=== PATIENT | male | born 1955 | race Caucasian/White ===

== ENCOUNTER 2020-10-27 05:01 | Observation (INO) ==
--- NOTE | 2020-10-20 09:30 | PAT Medication Instructions ---
Medication Instructions Date of Service October 20, 2020 Home Medications cholecalciferol (vitamin D3) 50 mcg (2,000 unit) capsule (Vitamin D3) 50 mcg PO QAM hydrochlorothiazide 25 mg tablet 50 mg PO QAM lisinopril 40 mg tablet 40 mg PO QAM mecobalamin (vitamin B12) 1,000 mcg chewable tablet 1,000 mcg PO QAM amlodipine 10 mg tablet 10 mg PO QAM indomethacin 75 mg capsule,extended release 75 mg PO QAM metoprolol succinate 100 mg capsule sprinkle, ext. release 24 hr 100 mg PO QAM ASK your surgeon for instructions indomethacin 75 mg capsule,extended release 75 mg PO QAM DO NOT take the morning of surgery cholecalciferol (vitamin D3) 50 mcg (2,000 unit) capsule (Vitamin D3) 50 mcg PO QAM hydrochlorothiazide 25 mg tablet 50 mg PO QAM lisinopril 40 mg tablet 40 mg PO QAM mecobalamin (vitamin B12) 1,000 mcg chewable tablet 1,000 mcg PO QAM Take morning of surgery With a small sip of water, OTHERWISE NOTHING TO EAT OR DRINK AFTER MIDNIGHT: amlodipine 10 mg tablet 10 mg PO QAM metoprolol succinate 100 mg capsule sprinkle, ext. release 24 hr 100 mg PO QAM Other Notes If you have any questions please call us at [phone] or [phone] or [phone] or [phone]
--- NOTE | 2020-10-20 13:37 | Anesthesiology Consultation ---
Date of Service October 20, 2020 Assessment & Plan (1) Encounter for pre-operative examination: COVID screening: Per assessment on 10/20: Travel screen negative, no known COVID- 19 positive contacts or current COVID-19 related symptoms. Patient vaccinated. Surgeon arranging preop COVID testing. Awaiting results. Chart Review Chart Review: Acceptable Risk for Surgery (pending surgeon-ordered PCP clearance) and Patient seen in Pre Admission Testing Teaching & Discussion Pre-Anesthesia Teaching/Discussion Notes: Instructed NPO after midnight before surgery,except medications with 15 cc of water. Medication instructions provided according to the PAT guidelines. History Surgery Operation Date: 10/27/20 07:00 Proposed Procedures p Left Total Knee Arthroplasty - Ajit Woodard MD Height/Weight Height: 6 ft 4 in Weight: 129.9 kg Allergies Allergy/AdvReac Type Severity Reaction Status Date / Time No Known Allergies Allergy Verified 10/20/20 07:23 Medications Home Medications Medication Instructions Recorded Confirmed Last Taken cholecalciferol (vitamin D3) 50 50 mcg PO QAM 04/01/20 10/20/20 Unknown mcg (2,000 unit) capsule (Vitamin D3) hydrochlorothiazide 25 mg tablet 50 mg PO QAM 04/01/20 10/20/20 Unknown lisinopril 40 mg tablet 40 mg PO QAM 04/01/20 10/20/20 Unknown mecobalamin (vitamin B12) 1,000 1,000 mcg PO QAM 05/07/20 10/20/20 Unknown mcg chewable tablet amlodipine 10 mg tablet 10 mg PO QAM 10/20/20 10/20/20 Unknown indomethacin 75 mg 75 mg PO QAM 10/20/20 10/20/20 Unknown capsule,extended release metoprolol succinate 100 mg 100 mg PO QAM 10/20/20 10/20/20 Unknown capsule sprinkle, ext. release 24 hr Past Medical History Medical History Chronic venous insufficiency S/P RFA of the GSV and SSV HTN (hypertension) Obesity Osteoarthritis Venous stasis ulcer Hx 04/2020 (RLL), "healed" per 09/25/20 [facility] [place] wound visit Exercise / Class Metabolic Activity II 4-5 Yardwork/Stairs/Walk up hill Past Family History Family History Other No family history of adverse response to anesthesia Past Surgical History Surgical History H/O elbow surgery Right Elbow H/O shoulder surgery (~1971) Left Shoulder History of colonoscopy Past Anesthesia History No Hx of Anesthesia Complications and No Family Hx of Anesthesia Complications History of PONV No Hx of PONV and Hx of Motion Sickness (Rare) Social History Smoking Status: Current every day smoker tobacco type: cigarettes Smoking cigarettes per day: 1/2 PPD Do You Dip or Chew Tobacco: No Hx Alcohol Use: Yes Alcohol type: beer alcohol intake frequency: a few times a week (3-4 beers/week) Hx Substance Use: No substance use type: does not use Review of Systems Patient denies chest pain, shortness of breath, dyspnea on exertion, fever, chills, cough, wheezing, palpitations. Physical Exam Vital Signs VITALS BP 142/78 P 59 TEMP 98.8 SP02 96%RA RESP 18 PHYSICAL Mildly decreased cervical extension range of motion. Full TMJ range of motion. TMD 4 finger breaths Mallampati Score 3 Dentition: full dentures upper/lower Lungs: clear throughout to auscultation Cardiac: regular rate and rhythm, no murmurs noted Spine: normal Carotid arteries: negative bruit Extremities: no edema, + compression stockings Lab Results Anesthesia Preop Results Results Anesthesia Widget: WBC 7.64 K/uL (4.8-10.8) 10/20/20 Hgb 16.4 g/dL (14.0-18.0) 10/20/20 Hct 49.6 % (42-52) 10/20/20 Plt 185 K/uL (130-400) 10/20/20 Na 138 mmol/L (136-145) 10/20/20 K 3.2 mmol/L (3.5-5.1) L 10/20/20 Cl 104 mmol/L (98-107) 10/20/20 CO2 26 mmol/L (21-32) 10/20/20 BUN 9 mg/dl (7-18) 10/20/20 Creat 1.09 mg/dl (0.6-1.4) 10/20/20 Glucose Level 97 mg/dl (70-99) 10/20/20 PT 10.3 Seconds (9.0-12.0) 10/20/20 PTT 27.0 Seconds (21.0-31.0) 10/20/20 INR 1.0 (0.9-1.1) 10/20/20 Urine Color Yellow 10/20/20 Urine Appearance Clear (Clear) 10/20/20 Urine pH 5.5 (4.5-7.5) 10/20/20 Urine Specific [place] 1.012 (1.000-1.030) 10/20/20 Urine Protein Negative (Negative) 10/20/20 Urine Glucose (UA) Negative (Negative) 10/20/20 Urine Ketones Negative (Negative) 10/20/20 Urine Blood Trace (Negative) H 10/20/20 Urine Nitrite Negative (Negative) 10/20/20 Urine Bilirubin Negative (Negative) 10/20/20 Urine Urobilinogen Negative (Negative) 10/20/20 Urine Leukocyte Esterase Negative (Negative) 10/20/20 Urine WBC (Auto) 1-5 /hpf (0-5) 10/20/20 Urine RBC (Auto) 0-4 /hpf (0-4) 10/20/20 Urine Hyaline Casts (Auto) 1-5 /lpf (0-5) 10/20/20 Urine Epithelial Cells (Auto) 0-5 /lpf (0-5) 10/20/20 Urine Bacteria (Auto) Negative (Negative) 10/20/20 Blood Type O Positive 10/20/20 Antibody Screen NEGATIVE 10/20/20 Testing Electrocardiogram Date: 04/13/20 SB at 52bpm. NS STA. Chest X-Ray Date: 04/13/20 Findings: + NAD Echocardiogram Date: 05/01/20 LVEF 55-59%. No RWMA. Mildly increased cLV wall thickness. Mild MR.
--- NOTE | 2020-10-21 17:06 | History & Physical Report ---
Date of Service October 21, 2020 Assessment & Plan (1) Left knee DJD: Plan: Postoperative prescription for Percocet will be provided at discharge from the hospital. Anticipate discharge to home with home health services. Preoperative lab work, EKG, and chest x-ray have been ordered today. He is seeing PT today. He has an appointment later this week to see his PCP for medical clearance. He is aware of the COVID-19 risks associated with surgery. He is currently asymptomatic of any COVID-19 symptoms. He will obtain nasal swab testing this Monday prior to surgery. He has a walker and cane. PDMP was checked and there are no concerning findings. Followup appointment has been made with Dr. Woodard for 11/09/20 at 3:00 p.m. History of Present Illness Chief Complaint: Left knee pain Primary Care Provider: Rosa Rice This 65-year-old male presents for his preoperative history and physical. He is scheduled to undergo a left knee total knee arthroplasty on 10/27/20. The patient was previously scheduled for this same procedure on 05/05/20. He was postponed at that time secondary to a right leg infection and open wound. He is now ready to proceed. No new injury. He continues to have left knee pain. It has been present for over 2-1/2 years. Pain is currently restricting his activities of daily living. Pain is worse with weightbearing. He has difficulty with walking any significant distance. He has tried viscosupplementation injections as well as activity modification without lasting improvement. No numbness or tingling. Preoperative imaging has been obtained. He does get occasional night pain. Allergies Allergy/AdvReac Type Severity Reaction Status Date / Time No Known Allergies Allergy Verified 10/20/20 07:23 Home Medications Medication Instructions Recorded Confirmed Type cholecalciferol (vitamin D3) 50 50 mcg PO QAM 04/01/20 10/20/20 History mcg (2,000 unit) capsule (Vitamin D3) hydrochlorothiazide 25 mg tablet 50 mg PO QAM 04/01/20 10/20/20 History lisinopril 40 mg tablet 40 mg PO QAM 04/01/20 10/20/20 History mecobalamin (vitamin B12) 1,000 1,000 mcg PO QAM 05/07/20 10/20/20 History mcg chewable tablet amlodipine 10 mg tablet 10 mg PO QAM 10/20/20 10/20/20 History indomethacin 75 mg 75 mg PO QAM 10/20/20 10/20/20 History capsule,extended release metoprolol succinate 100 mg 100 mg PO QAM 10/20/20 10/20/20 History capsule sprinkle, ext. release 24 hr Past Med/Surg History Medical History Chronic venous insufficiency S/P RFA of the GSV and SSV HTN (hypertension) Obesity Osteoarthritis Venous stasis ulcer Hx 04/2020 (RLL), "healed" per 09/25/20 [facility] [place] wound visit Surgical History H/O elbow surgery Right Elbow H/O shoulder surgery (~1970) Left Shoulder History of colonoscopy Family History Other No family history of adverse response to anesthesia Social History Smoking Status: Current every day smoker Cigarettes Per Day: 1/2 PPD; Second Hand Exposure: No; Hx Alcohol Use: Yes Alcohol type: beer Alcohol type Comment: 1-2x weekly Hx Substance Use: No Preferred Language: Gibralt[place] Communication Ability: Effective Blood Bank Calendar Control Clerk Required: No Beliefs That Will Affect Care: None Current Living Situation: Spouse current occupational status: employed 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 Physical Exam Physical Exam: Vitals: Height 191 cm, weight 130 kilograms, BMI 35.6, temperature 36.6, BP 146/86, pulse 65, O2 sat 97% on room air. General: Well-developed, well-nourished, elderly white male in no acute distress. Sitting in a chair. Alert and oriented. Skin: Warm and dry with good turgor. No rashes or lesions. No ecchymosis or erythema. He does have peripheral edema in both lower extremities. Right is slightly worse than left. Compression stockings are in place. HEENT: Normocephalic, atraumatic. Eyes: PERRLA, EOMI. Nares and oropharynx exams deferred due to COVID precautions. Heart: RRR, 2/6 systolic ejection murmur noted at the left sternal border. No gallops or rubs. Lungs: Clear to auscultation bilaterally. No crackles, rhonchi, or wheezing. Good air movement. Abdomen: Obese. Bowel sounds present x4, soft, nontender. No organomegaly. No masses. Musculoskeletal: Left knee evaluation reveals no intraarticular effusion. There is some thickening about the knee. There is limited range of motion. He lacks about 15 degrees of terminal extension. Flexion to only around 80 degrees today. This is significantly worse than when I last saw him in April. Strength is 5/5 with fair quad tone. Valgus alignment to the left knee. Stable collateral ligaments. No defect in the patellar tendon or quadriceps tendon. Ambulating today with an antalgic gait. Neurologic: Gross sensation is intact across left leg by soft touch. Peripheral pulses are 2+. Results & Data Results & Data ([facility]) Diagnostic Findings Radiographic imaging previously obtained shows end-stage DJD of the left knee. Periarticular osteophytes, subchondral sclerosis, and joint space narrowing are all present. Code Status & VTE Plan VTE Prophylaxis Plan VTE Prophylaxis will be ordered: Yes
[2020-10-27] MEDS ORDERED: ROPIVACAINE 0.5% HCL/PF 150 MG, BUPIVACAINE 0.75% MPF 20 ML, EPINEPHrine 0.15 MG, Ketor... INFIL SCH (06:00)
[2020-10-27] MEDS ORDERED: METOCLOPRAMIDE HCL 10 MG TABLET PO SCH (06:00)
[2020-10-27] MEDS ORDERED: CeleBREX 200 MG CAP PO SCH (06:00)
[2020-10-27] MEDS ORDERED: LR 60ML/HR IV SCH (06:00)
[2020-10-27] MEDS ORDERED: dexAMETHasone 4 MG TAB PO SCH (06:00)
[2020-10-27] MEDS ORDERED: oxyCODONE HCL 10 MG TABCR (OxyCONTIN) PO SCH (06:00)
[2020-10-27] MEDS ORDERED: cloNIDine HCL 0.1 MG/24 HR TRANSDERM SYS TD SCH (06:00)
[2020-10-27] MEDS ORDERED: TRANEXAMIC ACID 1,000 MG **IV Intra-op IV SCH (06:00)
[2020-10-27] MEDS ORDERED: TRANEXAMIC ACID 1,000 MG **IV Pre-op IV SCH (06:00)
[2020-10-27] MEDS ORDERED: GABAPENTIN 300 MG CAP PO SCH (06:00)
[2020-10-27] MEDS ORDERED: LR 500ML BOLUS, THEN 15ML/HR IV SCH (06:00)
[2020-10-27] MEDS ORDERED: traMADol HCL 50 MG TABLET PO SCH (06:00)
[2020-10-27] MEDS ORDERED: ACETAMINOPHEN 500 MG TAB PO SCH (06:00)
[2020-10-27] MEDS ORDERED: FAMOTIDINE 20 MG TAB PO SCH (06:00)
[2020-10-27] MEDS ORDERED: BUPIVACAINE 0.25% 30 ML VIAL ONE (06:28)
[2020-10-27] MEDS ORDERED: BUPIVACAINE 0.5 % 5 MG/1 ML PF 10ML VIAL ONE (06:28)
[2020-10-27] MEDS ORDERED: MIDAZOLAM HCL 1 MG/ML 2ML VIAL ONE ×2 (06:35→08:16)
[2020-10-27] MEDS ORDERED: LIDOCAINE 2% 2 ML VIAL/AMP(20MG/ML) INFIL ONE (06:35)
[2020-10-27] MEDS ORDERED: PROPOFOL IV EMULSION 10 MG/ML 20 ML VIAL IV ONE (06:35)
[2020-10-27] MEDS ORDERED: ePHEDrine sulfate 50 MG/ML AMP IV PRN (06:38)
[2020-10-27] MEDS ORDERED: ONDANSETRON INJ 2 MG/ML 2 ML VIAL IV PRN ×2 (06:38→14:56)
[2020-10-27] MEDS ORDERED: fentaNYL citrate 100 MCG/2 ML VIAL IV PRN (06:38)
[2020-10-27] MEDS ORDERED: ATROPINE SULFATE 0.1 MG/ML 10ML SYR IV PRN (06:38)
--- NOTE | 2020-10-27 06:44 | History & Physical Bridge Note ---
Date of Service October 27, 2020 History & Physical Bridge Note I have examined the patient, reviewed the History & Physical and in the interval since the performance of the History & Physical I have noted the following changes of clinical significance: no changes noted
[2020-10-27] MEDS ORDERED: KETAMINE 50 MG/5 ML SYRINGE ONE (07:29)
[2020-10-27] MEDS ORDERED: GLYCOPYRROLATE 0.2 MG/ML VIAL ONE (07:40)
[2020-10-27] MEDS ORDERED: SUCCINYLCHOLINE 100MG/5ML SYR IV ONE (09:25)
[2020-10-27] MEDS ORDERED: FUROSEMIDE 10 MG/ML 10 ML VIAL IV ONE (09:25)
--- NOTE | 2020-10-27 10:57 | Post Operative Brief Note ---
Immediate Post Op Note v1 Date of Surgery October 27, 2020 Pre & Post Diagnosis Operation Date: 10/27/20 07:00 Pre-Op Diagnosis: Left Knee Degenerative Joint Disease Post-Op Diagnosis: Left Knee Degenerative Joint Disease I identified the patient and participated in the time-out.: Yes Procedure Operation Date: 10/27/20 07:00 Actual Procedures p Left Total Knee Arthroplasty(Left) - Ajit Woodard MD Surgeon Ajit Woodard MD Sand Temperer gerhard hannon, no resident available Estimated Blood Loss 20 Findings See Below sever OA Drains Ann Catheter (16 macedonian 10ml balloon inserted by Maya Ross RN, without difficulty.) Anesthesia Type General Regional Complications possible pulmonary edema Disposition Accompanied Patient To Recovery: No Disposition: Recovery Room
--- NOTE | 2020-10-27 11:12 | Operative Report ---
Post Operative Report Pre & Post Diagnosis Operation Date: 10/27/20 07:00 Pre-Op Diagnosis: Left Knee Degenerative Joint Disease Post-Op Diagnosis: Left Knee Degenerative Joint Disease I identified the patient and participated in the time-out.: Yes Procedure Operation Date: 10/27/20 07:00 Actual Procedures p Left Total Knee Arthroplasty(Left) - Ajit Woodard MD Surgeon TEJINDER May MD Grants Specialist gerhard hannon, no resident available Estimated Blood Loss 20 Findings Consistent with Post-Op Diagnosis see operative report Specimens see operative report Drains none Complications Flash pulmonary edema Disposition Accompanied Patient To Recovery: Yes Indications This 65-year-old male presented to the office with complaints of persisting left knee pain. He had tried conservative care measures without improvement. He elected to proceed with surgical intervention after being educated about potential risks and outcomes. Preoperative imaging was obtained. Description of Procedure Patient was administered a spinal anesthetic and then taken to the operating room where he was given sedation. He was prepped and draped in the usual sterile fashion. Please see Dr. Woodard's operative report for specifics of the procedure. I was present for the entire case from initial patient positioning through final wound closure. During the duration of the case, patient did require intubation due to flash pulmonary edema. Assistance was provided in tissue retraction, hemostasis, trial implant placement, final implant placement, and final wound closure. Patient was taken to the recovery room intubated with eventual transfer to ICU. I attest to the content of the Intraoperative Record and any orders documented therein. Any exceptions are noted below.
[2020-10-27] MEDS ORDERED: propofoL 1,000 MG/100 ML VIAL IV SCH (11:15)
[2020-10-27] MEDS ORDERED: STAT IV Infusion **Titration per Protocol STA ×2 (11:15→12:12)
[2020-10-27] MEDS: PROPOFOL BOLUS FROM BAG IV PRN ×5 (11:44→12:23)
--- NOTE | 2020-10-27 12:09 | XRay Report ---
XR chest 1V portable HISTORY: Shortness of breath. r/o pulmonary edema COMPARISON: Chest 04/13/2020. FINDINGS: The endotracheal tube terminates 5.2 cm from the rod. The cardiac silhouette is mildly e nlarged. There is mild perihilar interstitial/vascular thickening suggestive of mild congestive hoffman e. No pleural effusions. No pneumothorax. Left basilar linear densities favor subsegmental atelectasi s. IMPRESSION: 1. Cardiomegaly with mild central pulmonary vascular congestion without overt edema. 2. Endotracheal tube terminates 5.2 cm from the rod. ACT 112: Negative or not required by law. Electronically signed by: Jimmy Chacon M.D. 10/27/2020 12:08 PM
[2020-10-27] MEDS ORDERED: MIDAZOLAM BOLUS FROM BAG IV PRN (12:12)
[2020-10-27] MEDS ORDERED: fentaNYL DRIP 1,250 MCG/250 ML BAG IV SCH (12:15)
[2020-10-27] MEDS ORDERED: MIDAZOLAM HCL 125 MG/250 ML BAG IV SCH (12:15)
--- NOTE | 2020-10-27 12:20 | XRay Report ---
LEFT KNEE 2 VIEWS History: Left total knee arthroplasty. Degenerative arthritis. Postop. FINDINGS: The patient is status post a left total knee arthroplasty. The hardware is intact. No fract ure or dislocation. Skin oniel are in place. IMPRESSION: Left total knee arthroplasty. No evidence for hardware complication. ACT 112: Negative or not required by law. Electronically signed by: Jimmy Chacon M.D. 10/27/2020 12:18 PM
--- NOTE | 2020-10-27 12:25 | Operative Report (OR) ---
DATE OF PROCEDURE: 10/27/2020 PREOPERATIVE DIAGNOSES: Left knee osteoarthritis, lateral compartment with valgus deformity and flex ion contracture. POSTOPERATIVE DIAGNOSES: Left knee osteoarthritis, lateral compartment with valgus deformity and fle xion contracture. PROCEDURE: Cemented left total knee arthroplasty. SURGEON: Ajit Woodard MD. HIM SPECIALIST: Raad Verma PA-C. No resident or fellow available. ANESTHESIA: Spinal regional with sedation converted to general. BRIEF HISTORY: Jeison is 65 years old and has severe left knee pain secondary to significant later al compartment arthritis with flexion contracture and valgus deformity. His symptoms are refractory to nonsurgical methods of management and affects his activities of daily living. PROCEDURE IN DETAIL: Informed consent was obtained. The patient was identified as Jeison Husain. He identified the operative site as the left knee. I marked with my initials. A preoperative surg ical timeout was performed and a preoperative dose of IV antibiotics was given. TXA was given preope ratively. He was taken to the operating room and positioned supine on the operating room table and a spinal anesthetic regional nerve block and sedation were administered. A bump was placed under the left hip and a tourniquet on the left thigh. A padded post was placed under the calf. The leg was p repped and draped in the usual sterile fashion from the tourniquet to the toes. The examination under anesthesia revealed a fixed valgus deformity of about 10-12 degrees. He additi onally had approximately a 15-degree flexion contracture, perhaps slightly more. His knee flexed wit h gravity to about 110 degrees. He had a large effusion. There was trace pretibial edema and what l ooked like an old resolving mosquito bite on the distal medial tibia, noninflamed and noninfected, ju st a small eschar. He previously had his surgery canceled because of a right leg venous stasis ulcer. He has undergone treatment for that and it is completely healed and stable at this time. The left leg was exsanguinated with the Esmarch and the tourniquet inflated to 250 mmHg after routine prep and drape. A midline incision was made followed by a medial parapatellar arthrotomy. There was abundant synovitis throughout the knee, which was excised using sharp excision and rongeur throughou t the entire knee as encountered. A large amount of fluid was present in the knee. There were large osteophytes on the patella, which were debrided. A minimal medial release was performed enough to s ubluxate the knee. The retropatellar fat pad was resected and soft tissue on the anterior aspect of the distal femur was removed as well. Large marginal osteophytes mainly on the femur, but also on the distal lateral tibia were removed, es pecially osteophytes on the proximal lateral tibia. There was some central wear present with grade I V changes in the lateral compartment. The lateral meniscus was largely absent. The medial meniscus was attenuated. There was an abnormal-appearing ACL. Not as big as I would have anticipated, so per haps partially or chronically torn with large lateral notch osteophytes, which were debrided. The me dial meniscus and lateral meniscus were excised. The medial meniscus was deficient as well and there were osteophytes posteromedial and posterolateral in the tibia, which were debrided as encountered. After resecting the cruciate ligaments, the tibia was easily subluxated. A chocolate coater hole was drilled in to the proximal tibia just in front of and between the tibial spines. An intramedullary alignment ro d was introduced and the 0-degree cutting block was applied. This was aligned to the tibial tubercle and set to take 6 mm off of the medial high side, which would correspond to a 2 mm or skin cut later ally. I initially made a conservative cut so as to not overdo the extension gap as it can sometimes happen in a valgus knee. This cut was made and checked for level, and remaining osteophytes posterol aterally on the tibia were removed. I then drilled a chocolate coater hole into the distal femur just above and slightly medial to the PCL attachmen t on the femur. An intramedullary alignment raghu was introduced and the distal femoral cutting guide was affixed to the femur. Because of his flexion contracture, a 14 mm thick cut was made. The colla teral ligaments were well proximal to the level of the incision. The cut was flat and level. At thi s time, the block was removed, and the knee was held in extension. I could not get a size 8 block in . At this time, I elected to proceed with recutting the tibia and I removed an additional 4 mm of chiqui ne, which allowed me to get an [address] laterally; however, our medial side was still ruddy ral millimeters more lax than that. I then went ahead and applied the distal femoral sizing guide. It was slightly bigger than a 5 and I pinned it in place and ended up taking an extra 2 mm posteriorly. The external rotation alignment w as matched to the epicondylar axis, which had been previously marked out. The size 5 anterior downcu tting and the anterior and posterior cuts, plus the chamfer cuts were made, protecting the collateral ligaments. I then went ahead and inserted a lamina copier technician and removed posterior medial and latera l osteophytes. After removing the posterior osteophytes, I was able to easily insert a 12-5 block. This was in flex ion. I was able to insert the 12-5 block in extension, but there was still some residual medial laxi ty present and overtightness medially. At this time, I went ahead and performed an inverted crucifor m release. I identified and preserved the superior lateral genicular vessels and then incised the la teral retinaculum one-third of the way between the femur and patella down to the cut surface of the t ibia and then extended this back to the level of the LCL and anterior to the level of the patellar te ndon. This was carried out into the subcutaneous tissues. I then reinserted the sizing blocks and w as able to fit a 15 mm block both in flexion and extension with neutral alignment, full extension and no residual laxity. I then went ahead and applied the box cutting guide. I lateralized this and then made the box cut. The femur was applied. I then went ahead and sized the tibia to a 5 and prepared the keel with the d rill and punch. I tried the 12-5 sizer and this gave full extension, but had some residual mid flexi on laxity medially and some laxity in 90 degrees. I then went ahead and inserted the 15 trial poly a nd this gave good stability throughout; however, there was a slight loss of extension. I then went a head and recut the distal femur. I reapplied the distal femoral cutting guide, cut 2 mm more off the distal femur, which was well distal to the collateral ligaments. Osteophytes under the collateral l igaments were removed. I then recut the box as well as the chamfers and reapplied the size 5 and ret rialed and now had full extension. The tourniquet was let down and meticulous hemostasis was performed. The soft tissues were kept mois t throughout the procedure. I then plugged the canals and injected ortho joint mix into the back of the knee, taking care to avoid the neurovascular structures. After 15 minutes of tourniquet down, I went ahead and inserted a spacer block and re-exsanguinated the limb. The bony surfaces were copious ly irrigated to remove any fat and blood clot back to normal honeycombed bone. Prior to this, I cut the patella. The patella measured 26 mm in thickness. The guide was set to preserve 14 and a 41 pat heike was selected. It is 11.5 mm thick. This cut was made and the paddle was appropriately oriented with the knee in slight flexion. It was distalized and medialized and the lug holes were drilled. Patellar tracking was fine with no hands technique. Back to cementing, 2 bags of Simplex P cement were mixed for 1 minute. While in a doughy state, smear s were placed on the posterior condyles and then the femur, tibia, and patella were cemented in place . The patella was held with the clamp and the knee was held in full extension with a spacer until th e cement had hardened. The tourniquet was then let down after being up for an additional approximate ly 20 minutes. Meticulous hemostasis was performed. Trialing was performed and the stability was ex cellent. The back of the knee was inspected for cement and removed as encountered. The knee had ful l extension, it was stable in full extension to varus and valgus stress and had likewise stability at 90 degrees of flexion. In mid position, there was trace LCL laxity and 1+ MCL laxity. The knee was fully straight. The final 15 mm thick size 5 posterior stabilized polyethylene implant was applied. Copious irrigation performed. The extensor mechanism was closed with #2 FiberWire above the equator of the patella and with interrupted and running #1 Vicryl below. The skin was then closed in layers with 0 and 2-0 Vicryls followed by oniel on the skin. Xeroform, 4 x 4s, ABD, soft wrap and Danis wra p and a knee immobilizer were applied. During the surgical procedure, it was noted that the patient required intubation. When the patient w as intubated, he had some pink frothy foam. It was felt that he may have obstructed and developed ne gative pressure pulmonary edema. His vitals remained stable. The plan postoperatively is to leave t he tube in and transfer him to the intensive care unit for monitoring. The yarn sizer is consulted. I informed the findings to the patient's . This is a potential complication related to the ane sthesia. He was then taken to recovery in stable condition. He received Lasix per anesthesia and a Ann cath eter was inserted at the conclusion of the operation. The resected bone was sent for specimen. COMPLICATIONS: As mentioned above. BLOOD LOSS: Estimated to be 20 mL. At the conclusion of the operation, I spoke to the patient's and informed her my findings. He will be rehabilitated according to the total knee protocol. COMPONENTS INSERTED: J and J PFC Sigma rotating platform knee, size 5 femur and tibia. Posterior sta bilized with a 15 mm thick PS rotating platform spacer. A 3-peg 41 mm oval dome patella. The compos ite patellar thickness at the conclusion of the procedure was 25 mm. The gravity assisted flexion wi th the extensor mechanism closed was 125 degrees. The knee had 0 degrees of extension. Job ID: [id number]
--- NOTE | 2020-10-27 12:34 | Hospitalist Consultation ---
Date of Consultation October 27, 2020 Assessment & Plan (1) Left knee DJD: Patient had a left total knee replacement earlier today, postoperative management per primary service (2) Flash pulmonary edema: Patient has VDRF, likely secondary to flash pulmonary edema Consider diuresis, patient actually doing quite well on the vent. Will defer to maintenance engineer service Previous 2D echo from earlier this year noted, consider repeat Consider CT angiogram of the chest (3) HTN (hypertension): Patient is currently intubated, last documented BP is hypotensive 108/66, hold oral antihypertensives at this time Thank you much for the consult, will continue to follow while the patient remains admitted History of Present Illness Reason for Consultation: Medical management Requesting Physician: Vance Attending Physician: Ajit Woodard MD History of Present Illness This is a 65-year-old male with past medical history of hypertension that pre sents today for elective total left knee replacement. This was performed by Dr. Woodard. Procedure was complicated by flash pulmonary edema and the patient was emergently intubated during the procedure. Patient is now being mated to their service with maintenance engineer consultation. I was called by anesthesiology to see in consult. I saw the patient in the PACU. At this point he is on ventilator and cannot provide any history. Patient is on 50% FiO2 and is 100% on monitor. He seems to be somewhat restless and PACU staff was about to give him a second bolus of propofol. No history can be provided from the patient. Allergies Allergy/AdvReac Type Severity Reaction Status Date / Time No Known Allergies Allergy Verified 10/27/20 05:32 Home Medications Medication Instructions Recorded Confirmed Type cholecalciferol (vitamin D3) 50 50 mcg PO QAM 04/01/20 10/27/20 History mcg (2,000 unit) capsule (Vitamin D3) hydrochlorothiazide 25 mg tablet 50 mg PO QAM 04/01/20 10/27/20 History lisinopril 40 mg tablet 40 mg PO QAM 04/01/20 10/27/20 History mecobalamin (vitamin B12) 1,000 1,000 mcg PO QAM 05/07/20 10/27/20 History mcg chewable tablet amlodipine 10 mg tablet 10 mg PO QAM 10/20/20 10/27/20 History indomethacin 75 mg 75 mg PO QAM 10/20/20 10/27/20 History capsule,extended release metoprolol succinate 100 mg 100 mg PO QAM 10/20/20 10/27/20 History capsule sprinkle, ext. release 24 hr Patient History Medical History (Updated 10/27/20 @ 12:31 by Stewart Nice DO) Chronic venous insufficiency S/P RFA of the GSV and SSV HTN (hypertension) Obesity Osteoarthritis Venous stasis ulcer Hx 04/2020 (RLL), "healed" per 09/25/20 [facility] wound visit Surgical History H/O elbow surgery Right Elbow H/O shoulder surgery (~1970) Left Shoulder History of colonoscopy Family History Other No family history of adverse response to anesthesia Social History Smoking Status: Current every day smoker Cigarettes Per Day: 1/2 PPD; Second Hand Exposure: No; Do You Dip or Chew Tobacco: No; Tobacco Cessation Education Requested by Patient: No Hx Alcohol Use: Yes Alcohol type: beer Alcohol type Comment: 1-2x weekly Hx Substance Use: No Preferred Language: Tunisian Communication Ability: Effective Mica Laminating Machine Feeder Required: No Beliefs That Will Affect Care: None Current Living Situation: Spouse current occupational status: employed current occupation: Insulation Professional for [employer] How many Children do You have: 2 Other Information That Helps Us Care for You: No Feels Safe at Home: Yes Safety Concerns: Feels Safe At This Time Childhood Exposure to Second-Hand Smoke: Yes caffeine: Yes during the past year weight has: remained stable Gender Identity: Male Assistive Devices: Denture - Upper and Denture - Lower Review of Systems Review of Systems: unobtainable from vented patient Physical Exam Constitutional: + morbidly obese (ventilated, sedated. thrashing but not alert) Neck: trachea midline, no thyromegaly Respiratory: Auscultation: + diminished lung sounds (limited eval, diminished in all isaac); no crackles, no rales, no rhonchi and no wheezes Cardiovascular: Rate/Rhythm: regular rate and regular rhythm Heart Sounds: normal S1 and normal S2 Gastrointestinal (Abdomen): Inspection/Auscultation: abdomen normal to inspection Percussion/Palpation: abdomen soft; abdomen nontender, no guarding, abdomen not rigid and no hepatosplenomegaly Skin: no rashes, warm and dry Results & Data Results & Data ([facility]) Vital Signs (Past 12 Hours) Vital Signs Temp Pulse Resp BP Pulse Ox 10/27/20 11:22 36.7 C 58 L 16 108/66 97 10/27/20 11:20 16 97 10/27/20 05:40 37.1 C 67 18 159/85 H 96 Laboratory Results Laboratory Results COVID-19 Eval Order Covid19 [facility]Now [facility] 10/27/20 05:23 SARS-CoV-2, RNA, NAAT NEGATIVE (NEGATIVE) 10/27/20 05:23 Blood Type O Positive 10/27/20 05:53 Antibody Screen NEGATIVE 10/27/20 05:53 Impressions Chest X-Ray 10/27/20 11:10 XR chest 1V portable HISTORY: Shortness of breath. r/o pulmonary edema COMPARISON: Chest 04/13/2020. FINDINGS: The endotracheal tube terminates 5.2 cm from the rod. The cardiac silhouette is mildly enlarged. There is mild perihilar interstitial/vascular thickening suggestive of mild congestive change. No pleural effusions. No pneumothorax. Left basilar linear densities favor subsegmental atelectasis. IMPRESSION: 1. Cardiomegaly with mild central pulmonary vascular congestion without overt edema. 2. Endotracheal tube terminates 5.2 cm from the rod. ACT 112: Negative or not required by law. Electronically signed by: Jimmy Chacon M.D. 10/27/2020 12:08 PM Knee X-Ray 10/27/20 11:10 LEFT KNEE 2 VIEWS History: Left total knee arthroplasty. Degenerative arthritis. Postop. FINDINGS: The patient is status post a left total knee arthroplasty. The hardware is intact. No fracture or dislocation. Skin oniel are in place. IMPRESSION: Left total knee arthroplasty. No evidence for hardware complication. ACT 112: Negative or not required by law. Electronically signed by: Jimmy Chacon M.D. 10/27/2020 12:18 PM PG Care Time/CCT Total # of Minutes Spent Total Time Spent with Patient: Total time spent is greater than 50% in coordination of care (as documented) at patient's floor/unit and/or counseling patient: Coding Level of Care Code 37578 Inpt Consult Level 3 Diagnoses Left knee DJD M17.12 Flash pulmonary edema J81.0 HTN (hypertension) I10
--- NOTE | 2020-10-27 14:06 | Anesthesiology Progress Note ---
Date of Service October 27, 2020 Anesthesia Post Procedure Vital Signs Vital Signs: Temp Pulse Pulse Resp BP Pulse Ox 10/27/20 13:45 79 18 130/68 96 10/27/20 13:30 73 13 135/74 95 10/27/20 13:15 73 16 123/74 94 10/27/20 13:00 72 17 134/71 95 10/27/20 12:50 36.9 C 71 16 131/70 98 10/27/20 12:40 79 80 14 125/75 96 10/27/20 12:30 83 80 20 113/60 98 10/27/20 12:20 80 20 121/72 99 10/27/20 12:10 82 20 122/84 100 10/27/20 12:00 69 18 138/78 99 10/27/20 11:50 63 16 109/62 97 10/27/20 11:40 63 19 113/65 98 10/27/20 11:30 84 16 145/96 H 99 10/27/20 11:22 36.7 C 58 L 16 108/66 97 10/27/20 11:20 16 97 10/27/20 05:40 37.1 C 67 18 159/85 H 96 Pain Intensity Left Knee: Pain Intensity: 2 Transfer of Care Handoff Completed per policy Notes Mental Status: alert / awake / arousable, participated in evaluation and see notes below Patient Amnestic to Procedure: Yes Nausea / Vomiting: adequately controlled Pain: adequately controlled Airway Patency, RR, SpO2: stable & adequate BP & HR: stable & adequate Hydration State: stable & adequate Neuraxial Anesthesia: was administered and sensory block is resolving Anesthetic Complications: see Notes below and Pt Satisfied with anesthetic care Notes: Mr. Husain was seen preoperatively and consented for SAB and left adductor canal block with MAC with GA backup. SAB and nerve block were performed in preop holding area without incident. He was taken to the OR and sedated with small doses of ketamine and low dose propofol infusion. I was called by LEADER ASSEMBLER who was caring for the patient was he noted a small amount of what appeared to be dark brown/dark red secretions. Per his report, patient had been coughing several times during the start of the procedure and was suctioned gently. He noted after one of the coughs some dark colored material and asked that I come to assist in diagnosis and treatment. Upon entering room, patient noted to have a large cough and what appeared to be bloody secretions came out of his mouth. I was unsure of the source and also was concerned at that time for possible aspiration. Therefore, we quickly performed a RSI using the glidescope and intubated this patient on the first attempt. ETT went easily through the cords and small blood was noted in his posterior pharynx but nothing appeared to be actively bleeding. Upon placing the ETT, we noted pink frothy sputum coming back out of the ETT. I used a small soft suction and suctioned the tube. SpO2 were stable in the low 90's and improved to high 90's after providing some PEEP. Giv en his clinical condition, I felt this might have been a case of negative pressure pulmonary edema either from an obstruction (patient endorsed snoring but denied SHERLY diagnosis as he hadn't been tested) or possibly a laryngospasm from secretions draining and irritating the vocal cords. I spoke at length with the critical care physician and asked that he accept the patient post-surgery as my plan was to keep him intubated. A haynes catheter was placed and 40mg IV lasix was given. ICU was full so patient was transferred to the PACU intubated and with respiratory therapy providing a portable vent. Sedation orders were given and I also consulted the hospitalist service along with the critical care physician. CXR was done in PACU. Full update was given to the patient's and she gave permission for me to speak to his daughter in law ([facility]). ICU physician went to see the patient during recovery and d/c'd his sedation and shortly afterward he met extubation criteria and ETT was removed without incident. Patient was successfully weaned off of oxygen and he denied any problems with swallowing (had ice chips), SOB, chest pain. Surgical pain was controlled and he denied nausea. I spoke with him and detailed the events of the operating room and answered his questions. I called his back and let her know that he was extubated. Patient was in good spirits and was awaiting transfer to a monitored lock. Will ensure continuous pulse oximetry overnight.
--- NOTE | 2020-10-27 14:07 | Critical Care Consultation ---
Date of Consultation October 27, 2020 Assessment & Plan (1) Flash pulmonary edema: (2) Left knee DJD: 65-year-old male with history of obesity and diastolic CHF who presented to the hospital for elective left knee replacement. There was concern for flash pulmonary edema after intubation. He received a total of 50 mg IV Lasix. He has had robust urine output. He was successfully extubated in the PACU with my supervision. He is doing very well. I think he is stable to be downgraded to the floor and perhaps discharge later today or tomorrow morning. Consider polysomnography as an outpatient to evaluate for sleep disordered breathing such as obstructive sleep apnea. Thank you for the consultation. Please call with questions. History of Present Illness Reason for Consultation: Negative pressure pulmonary edema Attending Physician: Ajit Woodard MD History of Present Illness 65-year-old male with a history of morbid obesity and hypertension who presented for elective left total knee replacement. Patient had pulmonary edema during intubation and was found to have pink frothy sputum. Patient successfully underwent left total knee replacement therapy. I saw the patient post procedure. He was in the PACU area. A chest x-ray was obtained which demonstrated mildly increased interstitial markings. I recommended that the patient have a Ann catheter placed and 40 mg of IV Lasix be given. He had robust urine output. His oxygen requirements were minimal. I placed him on a spontaneous breathing trial and he was doing very well with oxygen saturations in the high 90s. The patient was extubated to room air. He is currently saturating in the mid 90s. He is able to vocalize without issue. He denies any shortness of breath at present. No chest pain, fevers or chills. Allergies Allergy/AdvReac Type Severity Reaction Status Date / Time No Known Allergies Allergy Verified 10/27/20 05:32 Home Medications Medication Instructions Recorded Confirmed Type cholecalciferol (vitamin D3) 50 50 mcg PO QAM 04/01/20 10/27/20 History mcg (2,000 unit) capsule (Vitamin D3) hydrochlorothiazide 25 mg tablet 50 mg PO QAM 04/01/20 10/27/20 History lisinopril 40 mg tablet 40 mg PO QAM 04/01/20 10/27/20 History mecobalamin (vitamin B12) 1,000 1,000 mcg PO QAM 05/07/20 10/27/20 History mcg chewable tablet amlodipine 10 mg tablet 10 mg PO QAM 10/20/20 10/27/20 History indomethacin 75 mg 75 mg PO QAM 10/20/20 10/27/20 History capsule,extended release metoprolol succinate 100 mg 100 mg PO QAM 10/20/20 10/27/20 History capsule sprinkle, ext. release 24 hr Patient History Medical History (Updated 10/27/20 @ 12:31 by Stewart Nice DO) Chronic venous insufficiency S/P RFA of the GSV and SSV HTN (hypertension) Obesity Osteoarthritis Venous stasis ulcer Hx 04/2020 (RLL), "healed" per 09/25/20 [facility] [place] wound visit Surgical History H/O elbow surgery Right Elbow H/O shoulder surgery (~1970) Left Shoulder History of colonoscopy Family History Other No family history of adverse response to anesthesia Social History Smoking Status: Current every day smoker Cigarettes Per Day: 1/2 PPD; Second Hand Exposure: No; Do You Dip or Chew Tobacco: No; Tobacco Cessation Education Requested by Patient: No Hx Alcohol Use: Yes Alcohol type: beer Alcohol type Comment: 1-2x weekly Hx Substance Use: No Preferred Language: Yi Communication Ability: Effective Test Designer Required: No Beliefs That Will Affect Care: None Current Living Situation: Spouse current occupational status: employed current occupation: [employer] for [employer] How many Children do You have: 2 Other Information That Helps Us Care for You: No Feels Safe at Home: Yes Safety Concerns: Feels Safe At This Time Childhood Exposure to Second-Hand Smoke: Yes caffeine: Yes during the past year weight has: remained stable Gender Identity: Male Assistive Devices: Denture - Upper and Denture - Lower Review of Systems Review of Systems: All systems reviewed & are unremarkable except as noted in HPI & below Physical Exam Physical Exam: Constitutional: Obese appearing male no apparent distress Eyes: Pupils are equal round and reactive to light. Conjunctivae are normal. Anicteric sclera. Ears nose, mouth and throat: No focal deformities. Neck: Trachea is midline. Visual inspection is normal. Respiratory: Coarse breath sounds bilaterally. Cardiovascular: Regular rate and rhythm. No murmurs. No edema. Gastrointestinal: Normal bowel sounds, soft, nontender and nondistended. No hepatosplenomegaly noted. Musculoskeletal: No cyanosis. Patient is able to move all extremities. Left knee bandages in place. Skin: No rashes, warm dry and intact. Neurologic: No obvious focal neurological deficits seen. Psychiatric: Alert and oriented x3 with a euthymic affect. Results & Data Results & Data ([facility]) Vital Signs (Past 12 Hours) Vital Signs Temp Pulse Pulse Resp BP Pulse Ox 10/27/20 14:00 76 16 118/74 95 10/27/20 13:45 79 18 130/68 96 10/27/20 13:30 73 13 135/74 95 10/27/20 13:15 73 16 123/74 94 10/27/20 13:00 72 17 134/71 95 10/27/20 12:50 98.4 F 71 16 131/70 98 10/27/20 12:40 79 80 14 125/75 96 10/27/20 12:30 83 80 20 113/60 98 10/27/20 12:20 80 20 121/72 99 10/27/20 12:10 82 20 122/84 100 10/27/20 12:00 69 18 138/78 99 10/27/20 11:50 63 16 109/62 97 10/27/20 11:40 63 19 113/65 98 10/27/20 11:30 84 16 145/96 H 99 10/27/20 11:22 98.1 F 58 L 16 108/66 97 10/27/20 11:20 16 97 10/27/20 05:40 98.8 F 67 18 159/85 H 96 Coding Level of Care Code 79400 Inpt Consult Level 4 Diagnoses Flash pulmonary edema J81.0 Left knee DJD M17.12
[2020-10-27] MEDS ORDERED: METOCLOPRAMIDE HCL INJ 5 MG/ML 2 ML VIAL IV PRN (14:56)
[2020-10-27] MEDS ORDERED: TAMSULOSIN HCL 0.4 MG CAP PO PRN (14:56)
[2020-10-27] MEDS ORDERED: HYDROmorphone INJ 0.5 MG/0.5 ML SYR IV PRN (14:56)
[2020-10-27] MEDS ORDERED: NALOXONE HCL 0.4 MG/1 ML VIAL/CARP IV PRN (14:56)
[2020-10-27] MEDS ORDERED: bisacodyL 10 MG SUPP PR PRN (14:56)
[2020-10-27] MEDS ORDERED: diphenhydrAMINE 50 MG/ML VIAL IV PRN ×2 (14:56)
[2020-10-27] MEDS ORDERED: traMADol HCL 50 MG TABLET PO PRN (14:56)
[2020-10-27] MEDS ORDERED: oxyCODONE HCL IR 5 MG TAB (IMMEDIATE RELEASE) PO PRN (14:56)
[2020-10-27] MEDS ORDERED: MAGNESIUM HYDROXIDE SUSP 30 ML UDC PO PRN (14:56)
[2020-10-27] MEDS: ACETAMINOPHEN 500 MG TAB PO SCH ×2 (15:52→21:27)
[2020-10-27] MEDS: SODIUM CHLORIDE 0.9% 1000ML 1,000 ML IV SCH (15:52)
--- NOTE | 2020-10-27 17:05 | Progress Notes ---
DATE OF SERVICE: 10/27/2020. He is resting comfortably in PACU. He will be heading to PCU. The critical toddler caregiver did not think that he needed to go to the ICU. He has been extubated. His chest x-ray showed minimal eviden ce of pulmonary edema. His postop knee x-ray looks fine. Good alignment with no evidence of complic ation. He is satting fine 95% on room air, and his vitals are stable. He has no complaint of shortn ess of breath. We discussed the surgical procedure with him. He has a 1+ dorsalis pedis pulse. Nor mal sensation in the foot and 5/5 ankle and toe plantarflexion and dorsiflexion strength. We will us e the knee immobilizer to try to help ensure knee straightness. Otherwise, rehab per protocol. He c an be out of the knee brace for range of motion activities. Job ID: [id number]
[2020-10-27] MEDS ORDERED: TRANEXAMIC ACID / 0.7% NACL 1,000 MG/100 ML BAG IV SCH (17:15)
[2020-10-27] MEDS: CHECK CLONIDINE PATCH PLACEMENT SCH (17:21)
[2020-10-27] MEDS: ceFAZolin 2000MG 2,000 MG/15 ML SYR IV SCH (17:49)
[2020-10-27] MEDS: KETOROLAC TROMETHAMINE 15 MG/ML VIAL IV SCH (18:01)
[2020-10-27] MEDS ORDERED: SENNA 8.6 MG TAB PO SCH (21:00)
[2020-10-27] MEDS: DOCUSATE SODIUM 100 MG CAP PO SCH (21:27)
[2020-10-27] MEDS: ENOXAPARIN INJ 30 MG/0.3 ML SYR SQ SCH (21:27)
[2020-10-28] MEDS: KETOROLAC TROMETHAMINE 15 MG/ML VIAL IV SCH ×3 (00:59→12:26)
[2020-10-28] MEDS: ceFAZolin 2000MG 2,000 MG/15 ML SYR IV SCH (00:59)
[2020-10-28 06:04] LABS: Hematocrit (blood only) 39.5 % (42-52); Mean Corpuscular Hemoglobin 33.8 pg (25-34); Mean Corpuscular Hgb Conc 32.9 g/dL (32-36); Mean Corpuscular Volume 102.6 fL (80-100); Mean Platelet Volume 11.4 fL (7.4-10.4); Platelet Count 137 K/uL (130-400); RDW Coefficient of Variation 14.4 % (11.5-14.5); RDW Standard Deviation 54.3 fL (36.4-46.3); Red Blood Count 3.85 M/uL (4.7-6.1); White Blood Count 11.94 K/uL (4.8-10.8)
[2020-10-28] MEDS: SODIUM CHLORIDE 0.9% 1000ML 1,000 ML IV SCH (06:10)
[2020-10-28 06:33] LABS: Calcium 8.3 mg/dl (8.5-10.1); Creatinine Clr Calc Pharmacy 81.8 ml/min; Est GFR (African American) 64.7 ml/min; Est GFR (Non-African American) 55.8 ml/min; Potassium 3.7 mmol/L (3.5-5.1)
[2020-10-28] MEDS: ACETAMINOPHEN 500 MG TAB PO SCH (06:42)
[2020-10-28] MEDS ORDERED: dexAMETHasone 4 MG TAB PO SCH (08:00)
[2020-10-28] MEDS: DOCUSATE SODIUM 100 MG CAP PO SCH (08:10)
[2020-10-28] MEDS ORDERED: MULTIVITAMIN TAB PO SCH (09:00)
[2020-10-28] MEDS ORDERED: METOPROLOL SUCC 50MG EXT REL TAB PO SCH (09:00)
[2020-10-28] MEDS ORDERED: hydroCHLOROthiazide 25 MG TAB PO SCH (09:00)
[2020-10-28] MEDS ORDERED: lisinopril 40 MG TAB PO SCH (09:00)
[2020-10-28] MEDS ORDERED: amLODIPine BESYLATE 5 MG TAB PO SCH (09:00)
[2020-10-28] MEDS: ENOXAPARIN INJ 30 MG/0.3 ML SYR SQ SCH (10:50)
--- NOTE | 2020-10-28 11:00 | Progress Notes ---
DATE OF NOTE: 10/28/2020. SUBJECTIVE: He is resting comfortably in bed. The nurse reports no issues overnight. He denies any chest pains, breathing difficulties, shortness of breath or palpitations. OBJECTIVE: VITAL SIGNS: He is afebrile. The vital signs are stable. The dressing is clean and dry. Dorsalis pedis is 1+. He has 5/5 ankle and toe plantar flexion, dors iflexion and eversion strength. RADIOGRAPHS: Demonstrate good positioning of the components and no evidence of complication. He is status post a left total knee replacement. He has also had a possible negative pressure pulmon kiesha edema. PLAN: He will need a sleep apnea test as an outpatient. He will also need to wear his knee immobili zer at night to help maintain knee extension. He is at risk for recurrence of flexion contracture. He additionally will be recommended for a 3 x 10 = 0 extension brace. The patient will be set up for home health nursing. We reviewed wound care, bathing and activity instructions. If there are any p roblems with fever, swelling, drainage, pain or any other problems or questions, please call my offic e. He has an appointment to follow up approximately 2 weeks postoperatively. He will be on Lovenox, blood thinner, pain medication and his usual medications. Job ID: [id number]
--- NOTE | 2020-10-28 12:47 | Hospitalist Progress Note ---
Date of Service October 28, 2020 Assessment & Plan (1) Left knee DJD: Plan: - S/P L TKA on Oct - Surgical management per primary service (2) Flash pulmonary edema: Plan: - VDRF secondary to flast pulmonary edema and suspect this is in the setting of negative pressure pulmonary edema - RESOLVED - Was successfully extubated soon after and responded appropriately to Lasix - maintaining appropriate saturations on RA and lungs are clear on assessment - Echo - April 2020 - EF 55-59%; LV wall thickness; grade I diastolic dysfunction - Pt has a known murmur so this is not new; could consider new echocardiogram but given stability of condition could defer to outpatient setting (3) HTN (hypertension): Plan: - BPs are appropriate at this time - Can continue home Norvasc 10 mg daily, Lisinopril 40 mg daily, Metoprolol 100 mg daily, and HCTZ 50 mg daily Plan: Patient is medically stable; Recommend outpatient sleep study; Pt plans on D/C later today Admission and Anticipated Discharge Date Admission Date: October 27, 2020 Subjective Reports feeling well today. Appropriate saturations on RA and denies SOB. No chest pain. Suspect this was related to negative pressure pulm. edema. Pt has a known murmur. He reports is pain is under control and tolerating a diet. Review of Systems Review of Systems: REVIEW OF SYSTEMS General/Constitutional: Denies fever/chills ENT: Denies nasal drainage, sore throat, trouble swallowing Cardiovascular: Denies chest pain, palpitations, edema Respiratory: Denies cough, sputum, SOB, wheezing, orthopnea GI: Denies nausea, vomiting, abdominal pain, constipation, diarrhea : Denies dysuria Musculoskeletal: + L knee pain (controlled on regimen) Neurologic: Denies dizziness/lightheadedness, numbness/tingling, weakness Hematologic/Lymphatic: Denies bleeding/clotting abnormalities Physical Exam Physical Exam: PHYSICAL EXAM General Appearance: WDWN in NAD who is A&O x 3 HEENT: Head is normocephalic/atraumatic; Hearing grossly intact; Mucous membranes moist Neck: Supple; Trachea midline; Neg JVD Heart: RRR with murmur present Lungs: CTA in all lung isaac bilaterally; Respirations unlabored; Neg accessory muscle use Abdomen: Soft, non-tender, non-distended; Positive BS x 4 quadrants Extremities: Capillary refill < 2 seconds; Neg cyanosis or edema; LLE with so wrap in placement movement to toes Neurological: Speech clear; Gross motor/sensory function intact; Neg focal neurologic deficits Psychiatric: Appropriate mood/affect Skin: Normal Color; Warm/Dry Results & Data Results & Data ([facility]) Vital Signs (Past 12 Hours) Vital Signs Temp Pulse Pulse Pulse Resp BP Pulse Ox 10/28/20 11:29 36.8 C 66 20 136/83 96 10/28/20 10:52 36.4 C L 64 24 143/79 H 96 10/28/20 08:00 62 10/28/20 03:14 36.5 C 63 20 129/71 93 PG Care Time/CCT Total # of Minutes Spent Total Time Spent with Patient: Total time spent is greater than 50% in coordination of care (as documented) at patient's floor/unit and/or counseling patient: Coding Level of Care Code 06196 Inpt Consult Level 3 Diagnoses Left knee DJD M17.12 Flash pulmonary edema J81.0 HTN (hypertension) I10
--- NOTE | 2020-10-28 13:26 | Discharge Summary ---
Date of Service October 28, 2020 Discharge Data Consultations 10/27/20 10:42 Consult Scaler Packer Routine 10/27/20 11:10 Consult Scaler Packer Routine 10/27/20 14:56 Consult Hospitalist Routine Procedures Performed Operation Date: 10/27/20 07:00 Actual Procedures p Left Total Knee Arthroplasty(Left) - Ajit Woodard MD Hospital Course (1) Left knee DJD: Mr. Husain was admitted to [facility] after undergoing an elective left total knee arthroplasty by Dr. Ajit Woodard on October 27, 2020. His surgery was performed with spinal anesthetic and peripheral nerve block. He was given 3 g of IV Ancef for surgical prophylaxis which was continued during his postoperative stay for 24 hours. He tolerated the surgery well but during his procedure did have some suspected flash pulmonary edema. He was intubated. He was kept on intubation for the remainder of his surgery and in the PACU. He was seen by the sped teacher as a transfer to ICU had been planned. His lung sounds were clear and his chest x-ray showed nothing significant. It was determined to take him off the ventilator. He tolerated this well and was able to breathe on his own with normal oxygen saturation. He was then recommended to be transferred to PCU instead of the ICU. Hospitalist consult was obtained postoperative medical management on the floor. His regular home medications were continued. It was suspected that he may had had an obstructive event during the surgery which then caused some flash pulmonary edema. He may potentially have undiagnosed sleep apnea. Postoperatively physical therapy and Occupational Therapy consult was obtained. He was allowed weightbearing as tolerated on his left lower extremity with the assistance of a walker. Pain medication was given to him during his inpatient stay and his pain was well-controlled on oral Tylenol, tramadol and oxycodone. He did have a significant flexion contracture and his knee immobilizer was recommended to keep on when in bed to keep his knee straight. He could discontinue the knee immobilizer with walking if he had good quad control. Discharge instructions were reviewed with the patient. He tolerated regular diet during his inpatient stay his vital signs and oxygen saturation remained normal during his inpatient stay. An outpatient sleep study was recommended. He also may need an outpatient echocardiogram but will defer to his family physician for that. He was deemed safe for discharge to his home with physical therapy and occupational therapy as well as medicine. He was seen by case management and psychotherapist social worker and arrangements for home health was made. He will be seen by them on Monday, October 30, 2020. He was placed on Lovenox 30 mg twice daily for DVT prophylaxis and this will be continued for 2 to 4 weeks after surgery. Postoperative x-rays were obtained and show stable prosthesis. His dressings were not changed during the hospital stay but his dressings remain clean, dry and intact. All questions were answered. Discharge instructions were reviewed. He understands and agrees with the plan. Was recommended for an extension block splint to be obtained as an outpatient. He understands and agrees with the plan. He is discharged to his home in stable condition on October 28.
== END 2020-10-28 14:00 | disposition home health service (06) ==
LOC: PACUINP 05:01 → ASU 05:01 → 2S 17:03